=== PATIENT | female | born 1985 | race Caucasian/White ===

== ENCOUNTER 2016-05-13 20:13 | Emergency (ER) | payer BC ==
[~2016-05-13] VITALS: Ht 172.7 cm; Wt 99.8 kg
[~2016-05-13 20:13] MED LIST: MIRANA; PHEN37.53 PO; TOPI-24 PO
[2016-05-13 20:39] VITALS: BP 142/91
[2016-05-13 21:47] LABS: OBC FLU VALID
[2016-05-13] MEDS ORDERED: ACETAMINOPHEN 500 MG TABLET PO ONE (22:15)
[2016-05-13] MEDS ORDERED: IBUPROFEN 800 MG TABLET. PO ONE ×3 (22:15→23:03)
[2016-05-13] MEDS ORDERED: ONDANSETRON PF 4 MG/2 ML VIAL. IV ONE (22:15)
[2016-05-13] MEDS ORDERED: IV NORMAL SALINE 1000ML BAG 1,000 ML IV ONE (22:15)
[2016-05-13 22:18] LABS: BILIRUBIN,URINE NEGATIVE (NEG); GLUCOSE,URINE NEGATIVE (NEG); NITRITE,URINE NEGATIVE (NEG); PROTEIN,URINE NEGATIVE (NEG-TRACE)
[2016-05-13 22:25] LABS: BACTERIA,URINE 0 /HPF (0-FEW); RBC,URINE OCC /HPF (0-2); SQUAMOUS EPITHELIAL CELL,UR FEW /LPF
[2016-05-13 22:26] LABS: BARBITURATES NEG (NEG); BENZODIAZEPINES NEG (NEG); CANNABINOIDS NEG (NEG); COCAINE NEG (NEG); METHADONE NEG (NEG); OPIATES NEG (NEG); PHENCYCLIDINE NEG (NEG)
[2016-05-13 22:27] LABS: BASO # 0.1 x10^3/uL (0.0-0.2); BASO % 1 % (0-3); EOS % 0 % (0-3); HEMATOCRIT 42.7 % (36.0-47.0); HEMOGLOBIN 14.5 g/dL (12.0-15.5); LYMPH # 2.6 x10^3/uL (1.0-4.8); LYMPH % 15 % (24-48); MEAN CORPUSCULAR HEMOGLOBIN 30 pg (25-35); MEAN CORPUSCULAR HGB CONC 34 g/dL (31-37); MEAN CORPUSCULAR VOLUME 87 fL (79-100); MONO % 8 % (0-9); NEUT % 76 % (31-73); PLATELET COUNT 265 x10^3/uL (140-400); RED BLOOD COUNT 4.92 x10^6/uL (3.50-5.40); RED CELL DISTRIBUTION WIDTH 12.4 % (11.5-14.5); WHITE BLOOD COUNT 17.2 x10^3/uL (4.0-11.0)
[2016-05-13 22:29] LABS: ETHANOL, URINE NEG (NEG)
--- NOTE | 2016-05-13 23:26 | PHYS DOC ---
Past Medical History Past Medical History: Asthma, Diabetes-Type II Past Surgical History: Other Additional Past Surgical Histo: d&c Alcohol Use: Occasionally Drug Use: None Adult General Chief Complaint Chief Complaint: FLU SYMPTOM HPI HPI Patient is a 31 year old female with history of diabetes type 2, and asthma who presents today with fevers, sore throat, body aches, cough, nausea and vomiting, and slight left upper abdomen pain that began 3 days ago. Patient states she was seen at urgent care 3 days ago, she states they did strep test and influenza test which were negative, she was discharged and informed it's a viral illness. She states symptoms have not subsided. Patient denies any hematemesis or melena. PCP Dr. Ortiz at [facility] Review [facility] Systems Constitutional: Fevers body aches and chills Eyes: Denies change in visual acuity, redness, or eye pain [] HENT: sore throat [] Respiratory: Cough Cardiovascular: No additional information not addressed in HPI [] GI: Left upper quadrant abdominal pain, nausea and vomiting, no diarrhea : Denies dysuria or hematuria [] Musculoskeletal: Denies back pain or joint pain [] Integument: Denies rash or skin lesions [] Neurologic: Denies headache, focal weakness or sensory changes [] Endocrine: Denies polyuria or polydipsia [] Current Medications Current Medications Current Medications Medications (Trade) Dose Ordered Sig/Fabien Start Time Stop Time Status Last Admin Dose Admin Acetaminophen (Tylenol) 1,000 mg 1X ONCE 05/13/16 22:15 05/13/16 22:16 DC 05/13/16 22:26 1,000 MG Ibuprofen (Motrin) 800 mg STK-MED ONCE 05/13/16 23:03 05/13/16 23:04 DC Ondansetron HCl (Zofran) 4 mg 1X ONCE 05/13/16 22:15 05/13/16 22:16 DC 05/13/16 22:25 4 MG Sodium Chloride (Iv Sodium Chloride 0.9% 1000ml Bag) 1,000 ml @ 1,000 mls/hr 1X ONCE 05/13/16 22:15 05/13/16 23:14 DC 05/13/16 22:26 1,000 MLS/HR Allergies Allergies Allergies Coded Allergies Type Severity Reaction Last Updated Verified Penicillins Allergy Intermediate Hives 05/13/16 Yes Physical Exam Physical Exam Constitutional: Well developed, well nourished, no acute distress, non-toxic appearance. [] HENT: Normocephalic, atraumatic, bilateral external ears normal, oropharynx moist, no oral exudates, nose normal. [] Eyes: PERRLA, EOMI, conjunctiva normal, no discharge. [] Neck: Normal range of motion, no tenderness, supple, no stridor. [] Cardiovascular:Heart rate regular rhythm, no murmur [] Lungs & Thorax: Bilateral breath sounds clear to auscultation [] Abdomen: Bowel sounds normal, soft, no tenderness, no masses, no pulsatile masses. [] Skin: Warm, dry, no erythema, no rash. [] Back: No tenderness, no CVA tenderness. [] Extremities: No tenderness, no cyanosis, no clubbing, ROM intact, no edema. [] Neurologic: Alert and oriented X 3, normal motor function, normal sensory function, no focal deficits noted. [] Psychologic: Affect normal, judgement normal, mood normal. [] Current Patient Data Vital Signs Vital Signs Date Time Temp Pulse Resp B/P Pulse Ox O2 Delivery O2 Flow Rate FiO2 05/13/16 20:39 101.3 117 18 100 Room Air 101.3 Lab Values Laboratory Tests Test 05/13/16 21:08 05/13/16 21:18 05/13/16 22:05 05/13/16 22:20 Influenza Type A Antigen Negative (NEGATIVE) Influenza Type B Antigen Negative (NEGATIVE) POC Urine HCG, Qualitative Hcg negative (Negative) Urine Collection Type Unknown Urine Color Yellow Urine Clarity Cloudy Urine pH 7.0 Urine Specific [place] 1.010 Urine Protein Negativemg/dL (NEG-TRACE) Urine Glucose (UA) Negativemg/dL (NEG) Urine Ketones (Stick) Negativemg/dL (NEG) Urine Blood Negative (NEG) Urine Nitrite Negative (NEG) Urine Bilirubin Negative (NEG) Urine Urobilinogen Dipstick 1.0mg/dL (0.2 mg/dL) Urine Leukocyte Esterase Trace (NEG) Urine RBC Occ/HPF (0-2) Urine WBC 1-4/HPF (0-4) Urine Squamous Epithelial Cells Few/LPF Urine Bacteria 0/HPF (0-FEW) Urine Mucus Slight/LPF Urine Opiates Screen Neg (NEG) Urine Methadone Screen Neg (NEG) Urine Barbiturates Neg (NEG) Urine Phencyclidine Screen Neg (NEG) Urine Amphetamine/Methamphetamine Neg (NEG) Urine Benzodiazepines Screen Neg (NEG) Urine Cocaine Screen Neg (NEG) Urine Cannabinoids Screen Neg (NEG) Urine Ethyl Alcohol Neg (NEG) White Blood Count 17.2x10^3/uL (4.0-11.0) H Red Blood Count 4.92x10^6/uL (3.50-5.40) Hemoglobin 14.5g/dL (12.0-15.5) Hematocrit 42.7% (36.0-47.0) Mean Corpuscular Volume 87fL (79-100) Mean Corpuscular Hemoglobin 30pg (25-35) Mean Corpuscular Hemoglobin Concent 34g/dL (31-37) Red Cell Distribution Width 12.4% (11.5-14.5) Platelet Count 265x10^3/uL (140-400) Neutrophils (%) (Auto) 76% (31-73) H Lymphocytes (%) (Auto) 15% (24-48) L Monocytes (%) (Auto) 8% (0-9) Eosinophils (%) (Auto) 0% (0-3) Basophils (%) (Auto) 1% (0-3) Neutrophils # (Auto) 13.1x10^3uL (1.8-7.7) H Lymphocytes # (Auto) 2.6x10^3/uL (1.0-4.8) Monocytes # (Auto) 1.3x10^3/uL (0.0-1.1) H Eosinophils # (Auto) 0.1x10^3/uL (0.0-0.7) Basophils # (Auto) 0.1x10^3/uL (0.0-0.2) Ethyl Alcohol Level < 10mg/dL (0-10) Test 05/13/16 23:30 Sodium Level 141mmol/L (136-145) Potassium Level 3.3mmol/L (3.5-5.1) L Chloride Level 108mmol/L (98-107) H Carbon Dioxide Level 25mmol/L (21-32) Anion Gap 8 (6-14) Blood Urea Nitrogen 7mg/dL (7-20) Creatinine 0.8mg/dL (0.6-1.0) Estimated GFR (Cockcroft-Gault) 84.8 BUN/Creatinine Ratio 9 (6-20) Glucose Level 106mg/dL (70-99) H Calcium Level 8.2mg/dL (8.5-10.1) L Total Bilirubin 1.2mg/dL (0.2-1.0) H Aspartate Amino Transferase (AST) 35U/L (15-37) Alanine Aminotransferase (ALT) 80U/L (14-59) H Alkaline Phosphatase 150U/L (46-116) H Total Protein 6.6g/dL (6.4-8.2) Albumin 3.1g/dL (3.4-5.0) L Albumin/Globulin Ratio 0.9 (1.0-1.7) L Lipase 126U/L (73-393) Laboratory Tests 05/13/16 22:20 Laboratory Tests 05/13/16 23:30 EKG EKG [] Radiology/Procedures Radiology/Procedures [] Course & Med Decision Making Course & Med Decision Making Pertinent Labs and Imaging studies reviewed. (See chart for details) Patient is in the ED with flulike symptoms including nausea vomiting fevers coughing sore throat and left upper quadrant abdominal pain. Temperature on arrival to the ED was 101.3 with a heart rate 117. She was given Tylenol and Motrin and IV fluids initiated including Zofran. Negative influenza A or B. Negative rapid strep. chest x-ray interpreted by Dr. Eduardo is negative for any acute findings. CBC with a WBC of 17.2. Chem 8 was around several times by lab, they had called twice stating every time they run the chemistry they get different results on potassium and sodium. Current potassium is 3.3 and Na 141. Patient's symptoms are consistent with a viral illness. She was discharged with instructions to push fluids maintain good hand hygiene and follow-up with primary care doctor next week Dragon Disclaimer Dragon Disclaimer This electronic medical record was generated, in whole or in part, using a voice recognition dictation system. Departure Departure Impression: Primary Impression: Fever Additional Impressions: Viral pharyngitis Left upper quadrant pain Vomiting and diarrhea Cough Disposition: HOME, SELF-CARE Condition: STABLE Referrals: ANNE ORTIZ NP-C (PCP) Follow-up with the primary care doctor next week Patient Instructions: Diarrhea, Fever, Nausea and Vomiting Additional Instructions: You were seen with symptoms consistent with a viral illness. Please push fluids. Maintain good hand hygiene. Drink Gatorade for hydration. Follow-up with your doctor next week. Come back to the ED at any point symptoms worsen. Scripts Ondansetron (Zofran Odt)4 Mg Tab.rapdis1 Tab SL Q8HRS #15 TAB Prov:SCARLET HANLEY APRN 05/14/16 Problem Qualifiers Primary Impression: Fever Fever type: unspecified Qualified Code: R50.9 - Fever, unspecified SCARLET HANLEY APRN May 13, 2016 23:26
[2016-05-14 00:20] LABS: ALBUMIN 3.1 g/dL (3.4-5.0); ALBUMIN/GLOBULIN RATIO 0.9 (1.0-1.7); CALCIUM 8.2 mg/dL (8.5-10.1); CREATININE 0.8 mg/dL (0.6-1.0); GFR 84.8; POTASSIUM 3.3 mmol/L (3.5-5.1); TOTAL BILIRUBIN 1.2 mg/dL (0.2-1.0); TOTAL PROTEIN 6.6 g/dL (6.4-8.2)
[2016-05-14] MEDS ORDERED: ONDA4TAB10 SL (00:33)
[2016-05-14 00:41] LABS: POTASSIUM ISTAT 3.4 mmol/L (3.5-5.0)
[2016-05-14 06:58] LABS: NEGATIVE OBC STREP NEG; POSITIVE OBC STREP POS
--- NOTE | 2016-05-14 07:28 | RAD ---
Exam: PA and lateral chest radiograph History: Leg symptoms for 5 days, productive cough. Comparison: 01/19/2008. Findings: Cardiomediastinal silhouette is within normal limits for size. Bilateral lung caputo are free of focal infiltrate. No pleural effusion is seen. Impression: No acute cardiopulmonary process.
== END 2016-05-14 00:45 | disposition home or self-care (01) ==
LOC: ER 20:13
DX: J02.9 Acute pharyngitis, unspecified (principal); R50.9 Fever, unspecified; R10.12 Left upper quadrant pain; R11.2 Nausea with vomiting, unspecified; R19.7 Diarrhea, unspecified; J45.909 Unspecified asthma, uncomplicated; E11.9 Type 2 diabetes mellitus without complications; Z88.0 Allergy status to penicillin
CPT/HCPCS: 36415; 71020; 80047; 80053; 80305; 80320; 81001; 81025; 83690; 85027; 87070; 87804; 87880; 96361; 96374; 99285; J2405; J7030; G0480; G0481